=== PATIENT | male | born 1950 | race Caucasian/White ===

== ENCOUNTER 2019-11-30 16:44 | Inpatient (IN) | payer OTHER, SELFPAY ==
[~2019-11-30] VITALS: Ht 167.6 cm; Wt 77.7 kg
[2019-11-30 17:36] LABS: BASOPHIL % 0.1 % (0-2); PLATELET COUNT 199 x10^3mcL (130-400); RED CELL DISTRIBUTION WIDTH 13.7 % (11.5-14.5)
[2019-11-30 17:48] LABS: ALKALINE PHOSPHATASE 97 U/L (46-116); ALT/SGPT 29 U/L (16-63); AST/SGOT 26 U/L (15-37); BILIRUBIN TOTAL 0.41 mg/dL (0.20-1.00); CALCIUM 8.3 mg/dL (8.5-10.1); CARBON DIOXIDE 25.4 mmol/L (21-32); CHLORIDE SERUM 91 mmol/L (98-107); CREATININE SERUM 1.2 mg/dL (0.7-1.3); GFR1 > 60 mL/min; LACTIC DEHYDROGENASE (LDH) 203 U/L (100-190); POTASSIUM SERUM 4.3 mmol/L (3.5-5.1); SODIUM SERUM 127 mmol/L (136-145); TOTAL PROTEIN, SERUM 6.8 g/dL (6.4-8.2)
[2019-11-30 17:51] LABS: ALBUMIN 2.6 g/dL (3.4-5.0)
[2019-11-30 17:52] LABS: GLUCOSE SERUM 460 mg/dL (74-106)
[2019-11-30 18:16] LABS: C REACTIVE PROTEIN 32.7 mg/dL (<=0.9)
[2019-11-30 18:49] LABS: UA SPECIFIC GRAVITY <=1.005 (1.005-1.035); microscopic required? YES; urine erythrocyte TRACE (NEGATIVE)
[2019-11-30 19:48] LABS: CHOLESTEROL/HDL RATIO 3.5; MAGNESIUM 1.9 mg/dL (1.8-2.4); PHOSPHOROUS 2.8 mg/dL (2.5-4.9)
[2019-11-30 19:55] LABS: T3 TOTAL 0.67 ng/mL
[2019-11-30 20:16] LABS: AMPHETAMINE QUAL UR NONE DETECTED (See below)
[2019-11-30 20:17] LABS: FREE T4 1.62 ng/dL (0.76-1.46); FREE THYROXINE INDEX 2.8 ug/dL (1.4-4.5); T4(THYROXINE) 7.4 ug/dL (4.7-13.3)
[2019-11-30] MEDS ORDERED: PROAIR HFA8.5 GM (21:43)
[2019-11-30] MEDS ORDERED: BENZONATATE150 MG (21:44)
[2019-11-30 22:30] VITALS: BP 125/76
[2019-12-01 06:14] VITALS: BP 109/68
[2019-12-01 06:56] LABS: BASOPHIL % 0.1 % (0-2); PLATELET COUNT 213 x10^3mcL (130-400); RED CELL DISTRIBUTION WIDTH 13.7 % (11.5-14.5)
[2019-12-01 07:43] LABS: CALCIUM 8.7 mg/dL (8.5-10.1); CARBON DIOXIDE 25.2 mmol/L (21-32); CHLORIDE SERUM 99 mmol/L (98-107); CREATININE SERUM 0.9 mg/dL (0.7-1.3); GFR1 > 60 mL/min; GLUCOSE SERUM 308 mg/dL (74-106); MAGNESIUM 2.3 mg/dL (1.8-2.4); PHOSPHOROUS 3.7 mg/dL (2.5-4.9); POTASSIUM SERUM 5.2 mmol/L (3.5-5.1); SODIUM SERUM 135 mmol/L (136-145)
[2019-12-01 09:27] VITALS: BP 111/71
[2019-12-01 14:00] VITALS: BP 118/65
[2019-12-01 16:30] VITALS: BP 115/69
[2019-12-01 19:25] VITALS: BP 109/72
[2019-12-02 06:00] VITALS: BP 94/56
[2019-12-02 06:53] LABS: CALCIUM 8.6 mg/dL (8.5-10.1); CARBON DIOXIDE 23.7 mmol/L (21-32); CHLORIDE SERUM 99 mmol/L (98-107); CREATININE SERUM 1.1 mg/dL (0.7-1.3); GFR1 > 60 mL/min; GLUCOSE SERUM 244 mg/dL (74-106); MAGNESIUM 2.1 mg/dL (1.8-2.4); PHOSPHOROUS 2.9 mg/dL (2.5-4.9); POTASSIUM SERUM 3.8 mmol/L (3.5-5.1); SODIUM SERUM 134 mmol/L (136-145)
[2019-12-02 07:07] LABS: PLATELET COUNT 229 x10^3mcL (130-400); RED CELL DISTRIBUTION WIDTH 14.1 % (11.5-14.5)
[2019-12-02 08:09] LABS: BASOPHIL % 0 % (0-2)
[2019-12-02 09:46] VITALS: BP 102/63
[2019-12-02 12:23] VITALS: BP 120/68
[2019-12-02 17:19] VITALS: BP 120/66
[2019-12-02 19:20] VITALS: BP 126/70
[2019-12-02 22:30] VITALS: BP 126/70
[2019-12-03 06:15] VITALS: BP 129/72
[2019-12-03 06:24] LABS: BASOPHIL % 0.1 % (0-2); PLATELET COUNT 238 x10^3mcL (130-400); RED CELL DISTRIBUTION WIDTH 13.8 % (11.5-14.5)
[2019-12-03 06:49] LABS: CALCIUM 8.6 mg/dL (8.5-10.1); CARBON DIOXIDE 27.1 mmol/L (21-32); CHLORIDE SERUM 101 mmol/L (98-107); CREATININE SERUM 1.2 mg/dL (0.7-1.3); GFR1 > 60 mL/min; GLUCOSE SERUM 121 mg/dL (74-106); PHOSPHOROUS 3.8 mg/dL (2.5-4.9); POTASSIUM SERUM 3.9 mmol/L (3.5-5.1); SODIUM SERUM 139 mmol/L (136-145)
[2019-12-03 08:55] VITALS: BP 100/52
[2019-12-03 20:00] VITALS: BP 103/63
[2019-12-03 20:05] VITALS: BP 95/55
[2019-12-03 21:40] VITALS: BP 108/58
[2019-12-04] VITALS (7 sets, daily range): BP systolic 94–123; BP diastolic 47–90
[2019-12-04 05:59] LABS: BASOPHIL % 0.5 % (0-2); PLATELET COUNT 285 x10^3mcL (130-400); RED CELL DISTRIBUTION WIDTH 14.1 % (11.5-14.5)
[2019-12-04 06:21] LABS: CALCIUM 8.8 mg/dL (8.5-10.1); CARBON DIOXIDE 29.4 mmol/L (21-32); CHLORIDE SERUM 102 mmol/L (98-107); GFR1 > 60 mL/min; GLUCOSE SERUM 113 mg/dL (74-106); MAGNESIUM 2.3 mg/dL (1.8-2.4); PHOSPHOROUS 3.5 mg/dL (2.5-4.9); POTASSIUM SERUM 4.5 mmol/L (3.5-5.1); SODIUM SERUM 140 mmol/L (136-145)
[2019-12-05 03:54] VITALS: BP 106/59
[2019-12-05 06:26] LABS: CALCIUM 8.5 mg/dL (8.5-10.1); CARBON DIOXIDE 28.5 mmol/L (21-32); CHLORIDE SERUM 101 mmol/L (98-107); GFR1 > 60 mL/min; GLUCOSE SERUM 286 mg/dL (74-106); MAGNESIUM 2.6 mg/dL (1.8-2.4); PHOSPHOROUS 3.4 mg/dL (2.5-4.9); POTASSIUM SERUM 4.5 mmol/L (3.5-5.1); SODIUM SERUM 136 mmol/L (136-145)
[2019-12-05 06:31] LABS: BASOPHIL % 0.3 % (0-2); PLATELET COUNT 304 x10^3mcL (130-400); RED CELL DISTRIBUTION WIDTH 14.1 % (11.5-14.5)
[2019-12-05 08:15] VITALS: BP 92/48
[2019-12-05 12:00] VITALS: BP 109/66
[2019-12-05 16:00] VITALS: BP 116/59
[2019-12-05 20:00] VITALS: BP 114/60
[2019-12-06] VITALS: BP 96/54
[2019-12-06 04:02] LABS: BASOPHIL % 0.2 % (0-2); PLATELET COUNT 352 x10^3mcL (130-400)
[2019-12-06 04:08] LABS: CALCIUM 8.3 mg/dL (8.5-10.1); CARBON DIOXIDE 32.3 mmol/L (21-32); CHLORIDE SERUM 104 mmol/L (98-107); CREATININE SERUM 1.1 mg/dL (0.7-1.3); GFR1 > 60 mL/min; GLUCOSE SERUM 109 mg/dL (74-106); MAGNESIUM 2.3 mg/dL (1.8-2.4); PHOSPHOROUS 4.2 mg/dL (2.5-4.9); POTASSIUM SERUM 4.7 mmol/L (3.5-5.1); SODIUM SERUM 142 mmol/L (136-145)
[2019-12-06 06:05] VITALS: BP 98/62
[2019-12-06 07:30] VITALS: BP 101/59
[2019-12-06 10:38] LABS: BILIRUBIN DIRECT 0.11 mg/dL (0.0-0.2); BILIRUBIN TOTAL 0.3 mg/dL (0.20-1.00); TOTAL PROTEIN, SERUM 6.4 g/dL (6.4-8.2)
[2019-12-06 10:39] LABS: ALBUMIN 1.9 g/dL (3.4-5.0)
[2019-12-06 12:00] VITALS: BP 110/66
[2019-12-06 16:15] VITALS: BP 120/58
[2019-12-06 20:00] VITALS: BP 98/63
[2019-12-07] VITALS (9 sets, daily range): BP systolic 92–171; BP diastolic 17–90
[2019-12-07 06:02] LABS: PLATELET COUNT 368 x10^3mcL (130-400); RED CELL DISTRIBUTION WIDTH 14.2 % (11.5-14.5)
[2019-12-07 06:03] LABS: BASOPHIL % 0 % (0-2)
[2019-12-07 06:29] LABS: CALCIUM 8.4 mg/dL (8.5-10.1); CARBON DIOXIDE 30.8 mmol/L (21-32); CHLORIDE SERUM 104 mmol/L (98-107); GFR1 > 60 mL/min; MAGNESIUM 2.4 mg/dL (1.8-2.4); PHOSPHOROUS 2.9 mg/dL (2.5-4.9); POTASSIUM SERUM 3.9 mmol/L (3.5-5.1); SODIUM SERUM 142 mmol/L (136-145)
[2019-12-07 06:40] LABS: GLUCOSE SERUM 55 mg/dL (74-106)
[2019-12-07 07:22] LABS: ERYTHROCYTE SED RATE 84 mm/hr (0-20)
[2019-12-07 08:11] LABS: C REACTIVE PROTEIN 35.1 mg/dL (<=0.9)
[2019-12-08] VITALS (16 sets, daily range): BP systolic 81–118; BP diastolic 54–65
[2019-12-08 05:54] LABS: PLATELET COUNT 345 x10^3mcL (130-400); RED CELL DISTRIBUTION WIDTH 13.1 % (11.5-14.5)
[2019-12-08 05:55] LABS: BASOPHIL % 2.7 % (0-2)
[2019-12-08 06:16] LABS: ALKALINE PHOSPHATASE 136 U/L (46-116); ALT/SGPT 78 U/L (16-63); AST/SGOT 80 U/L (15-37); BILIRUBIN DIRECT 0.16 mg/dL (0.0-0.2); BILIRUBIN TOTAL 0.46 mg/dL (0.20-1.00); CALCIUM 7.6 mg/dL (8.5-10.1); CARBON DIOXIDE 29.6 mmol/L (21-32); CHLORIDE SERUM 107 mmol/L (98-107); GFR1 > 60 mL/min; GLUCOSE SERUM 306 mg/dL (74-106); MAGNESIUM 2.8 mg/dL (1.8-2.4); POTASSIUM SERUM 4.7 mmol/L (3.5-5.1); SODIUM SERUM 140 mmol/L (136-145)
[2019-12-08 06:19] LABS: ALBUMIN 1.5 g/dL (3.4-5.0); TOTAL PROTEIN, SERUM 5.9 g/dL (6.4-8.2)
[2019-12-08 06:32] LABS: C REACTIVE PROTEIN 39.7 mg/dL (<=0.9)
[2019-12-08 06:39] LABS: ERYTHROCYTE SED RATE 90 mm/hr (0-20)
[2019-12-09] VITALS (14 sets, daily range): BP systolic 101–114; BP diastolic 65–72
[2019-12-09 06:21] LABS: PLATELET COUNT 399 x10^3mcL (130-400)
[2019-12-09 06:41] LABS: BASOPHIL % 0 % (0-2); RED CELL DISTRIBUTION WIDTH 14.8 % (11.5-14.5)
[2019-12-09 07:27] LABS: BILIRUBIN DIRECT 0.15 mg/dL (0.0-0.2); BILIRUBIN TOTAL 0.3 mg/dL (0.20-1.00)
[2019-12-09 07:31] LABS: ALBUMIN 1.6 g/dL (3.4-5.0); TOTAL PROTEIN, SERUM 5.9 g/dL (6.4-8.2)
[2019-12-09 07:42] LABS: ALKALINE PHOSPHATASE 121 U/L (46-116); ALT/SGPT 61 U/L (16-63); AST/SGOT 40 U/L (15-37); BILIRUBIN TOTAL 0.3 mg/dL (0.20-1.00); CALCIUM 7.6 mg/dL (8.5-10.1); CARBON DIOXIDE 23.9 mmol/L (21-32); CHLORIDE SERUM 105 mmol/L (98-107); CREATININE SERUM 0.9 mg/dL (0.7-1.3); GFR1 > 60 mL/min; GLUCOSE SERUM 219 mg/dL (74-106); POTASSIUM SERUM 4.7 mmol/L (3.5-5.1); SODIUM SERUM 139 mmol/L (136-145)
[2019-12-09 07:45] LABS: ALBUMIN 1.5 g/dL (3.4-5.0); TOTAL PROTEIN, SERUM 5.9 g/dL (6.4-8.2)
[2019-12-09 09:01] LABS: C REACTIVE PROTEIN 26.4 mg/dL (<=0.9)
[2019-12-10] VITALS (15 sets, daily range): BP systolic 96–127; BP diastolic 62–662
[2019-12-10 06:08] LABS: BASOPHIL % 1.4 % (0-2); PLATELET COUNT 309 x10^3mcL (130-400); RED CELL DISTRIBUTION WIDTH 14.6 % (11.5-14.5)
[2019-12-10 06:24] LABS: BILIRUBIN DIRECT 0.17 mg/dL (0.0-0.2); BILIRUBIN TOTAL 0.36 mg/dL (0.20-1.00)
[2019-12-10 06:35] LABS: CALCIUM 7.8 mg/dL (8.5-10.1); CARBON DIOXIDE 26.8 mmol/L (21-32); CHLORIDE SERUM 109 mmol/L (98-107); CREATININE SERUM 0.9 mg/dL (0.7-1.3); GFR1 > 60 mL/min; GLUCOSE SERUM 249 mg/dL (74-106); MAGNESIUM 2.9 mg/dL (1.8-2.4); PHOSPHOROUS 3.3 mg/dL (2.5-4.9); POTASSIUM SERUM 4.9 mmol/L (3.5-5.1); SODIUM SERUM 142 mmol/L (136-145)
[2019-12-10 06:36] LABS: ALBUMIN 1.6 g/dL (3.4-5.0); TOTAL PROTEIN, SERUM 5.7 g/dL (6.4-8.2)
[2019-12-11] VITALS (14 sets, daily range): BP systolic 89–122; BP diastolic 51–74
[2019-12-11 05:13] LABS: BASOPHIL % 0 % (0-2); PLATELET COUNT 300 x10^3mcL (130-400); RED CELL DISTRIBUTION WIDTH 14.4 % (11.5-14.5)
[2019-12-11 05:24] LABS: CALCIUM 7.9 mg/dL (8.5-10.1); CARBON DIOXIDE 30.8 mmol/L (21-32); CHLORIDE SERUM 110 mmol/L (98-107); GFR1 > 60 mL/min; GLUCOSE SERUM 133 mg/dL (74-106); MAGNESIUM 2.6 mg/dL (1.8-2.4); PHOSPHOROUS 3.2 mg/dL (2.5-4.9); POTASSIUM SERUM 4.3 mmol/L (3.5-5.1); SODIUM SERUM 146 mmol/L (136-145)
[2019-12-11 05:43] LABS: BILIRUBIN DIRECT 0.1 mg/dL (0.0-0.2); BILIRUBIN TOTAL 0.3 mg/dL (0.20-1.00)
[2019-12-11 05:45] LABS: ALBUMIN 1.6 g/dL (3.4-5.0); TOTAL PROTEIN, SERUM 5.6 g/dL (6.4-8.2)
[2019-12-12] VITALS (19 sets, daily range): BP systolic 83–106; BP diastolic 56–69
[2019-12-12 02:58] LABS: BASOPHIL % 0.3 % (0-2); PLATELET COUNT 276 x10^3mcL (130-400)
[2019-12-12 03:13] LABS: ALKALINE PHOSPHATASE 117 U/L (46-116); ALT/SGPT 37 U/L (16-63); AST/SGOT 43 U/L (15-37); BILIRUBIN DIRECT 0.16 mg/dL (0.0-0.2); BILIRUBIN TOTAL 0.43 mg/dL (0.20-1.00); CALCIUM 8.1 mg/dL (8.5-10.1); CARBON DIOXIDE 30.7 mmol/L (21-32); CHLORIDE SERUM 112 mmol/L (98-107); CREATININE SERUM 0.9 mg/dL (0.7-1.3); GFR1 > 60 mL/min; GLUCOSE SERUM 100 mg/dL (74-106); MAGNESIUM 2.5 mg/dL (1.8-2.4); PHOSPHOROUS 4.2 mg/dL (2.5-4.9); SODIUM SERUM 147 mmol/L (136-145)
[2019-12-12 04:00] LABS: ALBUMIN 1.7 g/dL (3.4-5.0); TOTAL PROTEIN, SERUM 5.8 g/dL (6.4-8.2)
[2019-12-13] VITALS (15 sets, daily range): BP systolic 84–121; BP diastolic 54–80
[2019-12-13 05:57] LABS: PLATELET COUNT 221 x10^3mcL (130-400)
[2019-12-13 06:03] LABS: ALKALINE PHOSPHATASE 92 U/L (46-116); ALT/SGPT 35 U/L (16-63); AST/SGOT 31 U/L (15-37); BILIRUBIN DIRECT 0.15 mg/dL (0.0-0.2); BILIRUBIN TOTAL 0.3 mg/dL (0.20-1.00); CALCIUM 7.9 mg/dL (8.5-10.1); CARBON DIOXIDE 28.4 mmol/L (21-32); CHLORIDE SERUM 108 mmol/L (98-107); CREATININE SERUM 0.9 mg/dL (0.7-1.3); GFR1 > 60 mL/min; GLUCOSE SERUM 257 mg/dL (74-106); MAGNESIUM 2.6 mg/dL (1.8-2.4); PHOSPHOROUS 3.7 mg/dL (2.5-4.9); POTASSIUM SERUM 4.4 mmol/L (3.5-5.1); SODIUM SERUM 145 mmol/L (136-145)
[2019-12-13 06:05] LABS: ALBUMIN 1.4 g/dL (3.4-5.0); TOTAL PROTEIN, SERUM 5.1 g/dL (6.4-8.2)
[2019-12-13 06:06] LABS: BASOPHIL % 0 % (0-2); RED CELL DISTRIBUTION WIDTH 14.6 % (11.5-14.5)
[2019-12-14] VITALS (18 sets, daily range): BP systolic 101–133; BP diastolic 55–754
[2019-12-14 06:01] LABS: BASOPHIL % 1.3 % (0-2); PLATELET COUNT 225 x10^3mcL (130-400)
[2019-12-14 06:07] LABS: RED CELL DISTRIBUTION WIDTH 14.8 % (11.5-14.5)
[2019-12-14 06:25] LABS: ALKALINE PHOSPHATASE 101 U/L (46-116); ALT/SGPT 32 U/L (16-63); AST/SGOT 31 U/L (15-37); BILIRUBIN DIRECT 0.13 mg/dL (0.0-0.2); BILIRUBIN TOTAL 0.44 mg/dL (0.20-1.00); CALCIUM 8.2 mg/dL (8.5-10.1); CARBON DIOXIDE 33.4 mmol/L (21-32); CHLORIDE SERUM 109 mmol/L (98-107); CREATININE SERUM 0.9 mg/dL (0.7-1.3); GFR1 > 60 mL/min; GLUCOSE SERUM 177 mg/dL (74-106); MAGNESIUM 2.7 mg/dL (1.8-2.4); PHOSPHOROUS 4.2 mg/dL (2.5-4.9); POTASSIUM SERUM 5.2 mmol/L (3.5-5.1); SODIUM SERUM 144 mmol/L (136-145)
[2019-12-14 06:36] LABS: ALBUMIN 1.6 g/dL (3.4-5.0); TOTAL PROTEIN, SERUM 5.4 g/dL (6.4-8.2)
[2019-12-14 12:38] LABS: CHLORIDE SERUM 109 mmol/L (98-107); CREATININE SERUM 0.8 mg/dL (0.7-1.3); GFR1 > 60 mL/min; GLUCOSE SERUM 172 mg/dL (74-106); POTASSIUM SERUM 4.8 mmol/L (3.5-5.1); SODIUM SERUM 144 mmol/L (136-145)
[2019-12-15] VITALS (15 sets, daily range): BP systolic 107–140; BP diastolic 60–80
[2019-12-15 05:55] LABS: PLATELET COUNT 186 x10^3mcL (130-400); RED CELL DISTRIBUTION WIDTH 13.8 % (11.5-14.5)
[2019-12-15 05:56] LABS: BASOPHIL % 2.1 % (0-2)
[2019-12-15 06:19] LABS: ALKALINE PHOSPHATASE 101 U/L (46-116); ALT/SGPT 36 U/L (16-63); AST/SGOT 35 U/L (15-37); BILIRUBIN DIRECT 0.22 mg/dL (0.0-0.2); BILIRUBIN TOTAL 0.52 mg/dL (0.20-1.00); CALCIUM 7.9 mg/dL (8.5-10.1); CARBON DIOXIDE 33.8 mmol/L (21-32); CHLORIDE SERUM 109 mmol/L (98-107); GFR1 > 60 mL/min; GLUCOSE SERUM 192 mg/dL (74-106); MAGNESIUM 2.5 mg/dL (1.8-2.4); PHOSPHOROUS 4.2 mg/dL (2.5-4.9); POTASSIUM SERUM 4.6 mmol/L (3.5-5.1); SODIUM SERUM 145 mmol/L (136-145)
[2019-12-15 06:23] LABS: ALBUMIN 1.7 g/dL (3.4-5.0); TOTAL PROTEIN, SERUM 5.3 g/dL (6.4-8.2)
[2019-12-16] VITALS (16 sets, daily range): BP systolic 92–152; BP diastolic 54–95
[2019-12-16 05:56] LABS: BASOPHIL % 0 % (0-2); PLATELET COUNT 162 x10^3mcL (130-400); RED CELL DISTRIBUTION WIDTH 14.8 % (11.5-14.5)
[2019-12-16 06:15] LABS: CALCIUM 6.8 mg/dL (8.5-10.1); CARBON DIOXIDE 29.5 mmol/L (21-32); CHLORIDE SERUM 113 mmol/L (98-107); CREATININE SERUM 0.7 mg/dL (0.7-1.3); GFR1 > 60 mL/min; GLUCOSE SERUM 162 mg/dL (74-106); MAGNESIUM 2.1 mg/dL (1.8-2.4); PHOSPHOROUS 3.3 mg/dL (2.5-4.9); POTASSIUM SERUM 4.1 mmol/L (3.5-5.1); SODIUM SERUM 146 mmol/L (136-145)
[2019-12-17] VITALS (16 sets, daily range): BP systolic 100–146; BP diastolic 63–767
[2019-12-17 05:41] LABS: PLATELET COUNT 135 x10^3mcL (130-400); RED CELL DISTRIBUTION WIDTH 14.5 % (11.5-14.5)
[2019-12-17 05:42] LABS: BASOPHIL % 0 % (0-2)
[2019-12-17 06:08] LABS: CALCIUM 7.7 mg/dL (8.5-10.1); CARBON DIOXIDE 36.5 mmol/L (21-32); CHLORIDE SERUM 108 mmol/L (98-107); CREATININE SERUM 0.8 mg/dL (0.7-1.3); GFR1 > 60 mL/min; GLUCOSE SERUM 150 mg/dL (74-106); MAGNESIUM 2.6 mg/dL (1.8-2.4); PHOSPHOROUS 4.4 mg/dL (2.5-4.9); POTASSIUM SERUM 5.1 mmol/L (3.5-5.1); SODIUM SERUM 141 mmol/L (136-145)
[2019-12-17 06:10] LABS: ALBUMIN 1.6 g/dL (3.4-5.0)
[2019-12-18] VITALS (16 sets, daily range): BP systolic 101–139; BP diastolic 44–82
[2019-12-18 02:54] LABS: BASOPHIL % 0 % (0-2); PLATELET COUNT 131 x10^3mcL (130-400); RED CELL DISTRIBUTION WIDTH 14.5 % (11.5-14.5)
[2019-12-18 03:28] LABS: CALCIUM 7.4 mg/dL (8.5-10.1); CARBON DIOXIDE 35.1 mmol/L (21-32); CHLORIDE SERUM 107 mmol/L (98-107); CREATININE SERUM 0.9 mg/dL (0.7-1.3); GFR1 > 60 mL/min; GLUCOSE SERUM 246 mg/dL (74-106); MAGNESIUM 2.4 mg/dL (1.8-2.4); PHOSPHOROUS 4.1 mg/dL (2.5-4.9); POTASSIUM SERUM 5.2 mmol/L (3.5-5.1); SODIUM SERUM 139 mmol/L (136-145)
[2019-12-19] VITALS (19 sets, daily range): BP systolic 79–174; BP diastolic 44–88
[2019-12-19 05:38] LABS: BASOPHIL % 0 % (0-2); PLATELET COUNT 127 x10^3mcL (130-400); RED CELL DISTRIBUTION WIDTH 14.7 % (11.5-14.5)
[2019-12-19 05:47] LABS: CALCIUM 7.7 mg/dL (8.5-10.1); CARBON DIOXIDE 30.5 mmol/L (21-32); CHLORIDE SERUM 105 mmol/L (98-107); GFR1 > 60 mL/min; GLUCOSE SERUM 127 mg/dL (74-106); MAGNESIUM 2.6 mg/dL (1.8-2.4); PHOSPHOROUS 3.9 mg/dL (2.5-4.9); POTASSIUM SERUM 4.6 mmol/L (3.5-5.1); SODIUM SERUM 141 mmol/L (136-145)
[2019-12-19 13:32] LABS: RED CELL DISTRIBUTION WIDTH 14.3 % (11.5-14.5)
[2019-12-19 14:10] LABS: MONOCYTE 3 % (0-7); SEGMENTED NEUTROPHILS 93 % (37-75); rbc morphology (normal/abnorm) NORMAL (NORMAL)
[2019-12-19 14:11] LABS: PLATELET COUNT 108 x10^3mcL (130-400)
[2019-12-20] VITALS (15 sets, daily range): BP systolic 104–135; BP diastolic 59–70
[2019-12-20 06:43] LABS: ALBUMIN 1.5 g/dL (3.4-5.0); BASOPHIL % 0 % (0-2); CARBON DIOXIDE 30.6 mmol/L (21-32); CHLORIDE SERUM 104 mmol/L (98-107); CREATININE SERUM 0.8 mg/dL (0.7-1.3); GFR1 > 60 mL/min; GLUCOSE SERUM 217 mg/dL (74-106); MAGNESIUM 2.1 mg/dL (1.8-2.4); PHOSPHOROUS 3.1 mg/dL (2.5-4.9); PLATELET COUNT 86 x10^3mcL (130-400); POTASSIUM SERUM 4.6 mmol/L (3.5-5.1); RED CELL DISTRIBUTION WIDTH 14.3 % (11.5-14.5); SODIUM SERUM 137 mmol/L (136-145)
[2019-12-21] VITALS (15 sets, daily range): BP systolic 107–135; BP diastolic 50–66
[2019-12-21 05:36] LABS: BASOPHIL % 0 % (0-2); PLATELET COUNT 71 x10^3mcL (130-400); RED CELL DISTRIBUTION WIDTH 14.6 % (11.5-14.5)
[2019-12-21 05:37] LABS: CALCIUM 7.5 mg/dL (8.5-10.1); CARBON DIOXIDE 36.1 mmol/L (21-32); CHLORIDE SERUM 98 mmol/L (98-107); CREATININE SERUM 0.7 mg/dL (0.7-1.3); GFR1 > 60 mL/min; GLUCOSE SERUM 217 mg/dL (74-106); MAGNESIUM 2.1 mg/dL (1.8-2.4); PHOSPHOROUS 4.1 mg/dL (2.5-4.9); POTASSIUM SERUM 4.7 mmol/L (3.5-5.1); SODIUM SERUM 134 mmol/L (136-145)
[2019-12-22] VITALS (14 sets, daily range): BP systolic 107–132; BP diastolic 60–75
[2019-12-22 07:06] LABS: BASOPHIL % 0 % (0-2); PLATELET COUNT 65 x10^3mcL (130-400); RED CELL DISTRIBUTION WIDTH 14.7 % (11.5-14.5)
[2019-12-22 07:07] LABS: CALCIUM 7.8 mg/dL (8.5-10.1); CARBON DIOXIDE 34.8 mmol/L (21-32); CHLORIDE SERUM 100 mmol/L (98-107); CREATININE SERUM 0.7 mg/dL (0.7-1.3); GFR1 > 60 mL/min; GLUCOSE SERUM 160 mg/dL (74-106); MAGNESIUM 2.1 mg/dL (1.8-2.4); PHOSPHOROUS 3.1 mg/dL (2.5-4.9); POTASSIUM SERUM 4.4 mmol/L (3.5-5.1); SODIUM SERUM 136 mmol/L (136-145)
[2019-12-23] VITALS (15 sets, daily range): BP systolic 107–133; BP diastolic 57–78
[2019-12-23 05:12] LABS: BASOPHIL % 0.3 % (0-2); RED CELL DISTRIBUTION WIDTH 14.5 % (11.5-14.5)
[2019-12-23 05:13] LABS: PLATELET COUNT 60 x10^3mcL (130-400)
[2019-12-23 05:51] LABS: CALCIUM 7.8 mg/dL (8.5-10.1); CARBON DIOXIDE 37.7 mmol/L (21-32); CHLORIDE SERUM 102 mmol/L (98-107); CREATININE SERUM 0.7 mg/dL (0.7-1.3); GFR1 > 60 mL/min; GLUCOSE SERUM 135 mg/dL (74-106); MAGNESIUM 2.3 mg/dL (1.8-2.4); PHOSPHOROUS 4.1 mg/dL (2.5-4.9); POTASSIUM SERUM 4.7 mmol/L (3.5-5.1); SODIUM SERUM 137 mmol/L (136-145)
[2019-12-23 05:53] LABS: C REACTIVE PROTEIN 11.2 mg/dL (<=0.9)
[2019-12-23 05:56] LABS: ALBUMIN 1.5 g/dL (3.4-5.0)
[2019-12-24] VITALS (16 sets, daily range): BP systolic 104–145; BP diastolic 53–65
[2019-12-24 05:36] LABS: BASOPHIL % 0.9 % (0-2)
[2019-12-24 05:37] LABS: PLATELET COUNT 67 x10^3mcL (130-400); RED CELL DISTRIBUTION WIDTH 14.9 % (11.5-14.5)
[2019-12-24 05:57] LABS: PHOSPHOROUS 4.3 mg/dL (2.5-4.9)
[2019-12-24 05:58] LABS: MAGNESIUM 2.2 mg/dL (1.8-2.4)
[2019-12-24 06:07] LABS: ALBUMIN 1.5 g/dL (3.4-5.0); ALKALINE PHOSPHATASE 116 U/L (46-116); ALT/SGPT 54 U/L (16-63); AST/SGOT 34 U/L (15-37); BILIRUBIN TOTAL 0.59 mg/dL (0.20-1.00); CALCIUM 7.1 mg/dL (8.5-10.1); CARBON DIOXIDE 35.7 mmol/L (21-32); CHLORIDE SERUM 98 mmol/L (98-107); CREATININE SERUM 0.8 mg/dL (0.7-1.3); GFR1 > 60 mL/min; GLUCOSE SERUM 254 mg/dL (74-106); SODIUM SERUM 133 mmol/L (136-145); TOTAL PROTEIN, SERUM 4.4 g/dL (6.4-8.2)
[2019-12-25] VITALS (15 sets, daily range): BP systolic 102–144; BP diastolic 57–70
[2019-12-25 05:35] LABS: BASOPHIL % 0.2 % (0-2); PLATELET COUNT 73 x10^3mcL (130-400); RED CELL DISTRIBUTION WIDTH 14.8 % (11.5-14.5)
[2019-12-25 05:50] LABS: CALCIUM 7.4 mg/dL (8.5-10.1); CHLORIDE SERUM 98 mmol/L (98-107); CREATININE SERUM 0.7 mg/dL (0.7-1.3); GFR1 > 60 mL/min; GLUCOSE SERUM 188 mg/dL (74-106); MAGNESIUM 2.3 mg/dL (1.8-2.4); PHOSPHOROUS 2.9 mg/dL (2.5-4.9); POTASSIUM SERUM 4.6 mmol/L (3.5-5.1); SODIUM SERUM 135 mmol/L (136-145)
[2019-12-25 06:00] LABS: CARBON DIOXIDE 42.8 mmol/L (21-32)
[2019-12-26] VITALS (15 sets, daily range): BP systolic 127–144; BP diastolic 65–73
[2019-12-26 06:28] LABS: BASOPHIL % 0 % (0-2); PLATELET COUNT 92 x10^3mcL (130-400); RED CELL DISTRIBUTION WIDTH 15.9 % (11.5-14.5)
[2019-12-26 06:42] LABS: CALCIUM 7.7 mg/dL (8.5-10.1); CHLORIDE SERUM 97 mmol/L (98-107); CREATININE SERUM 0.7 mg/dL (0.7-1.3); GFR1 > 60 mL/min; GLUCOSE SERUM 199 mg/dL (74-106); MAGNESIUM 2.2 mg/dL (1.8-2.4); PHOSPHOROUS 6.1 mg/dL (2.5-4.9); POTASSIUM SERUM 5.3 mmol/L (3.5-5.1); SODIUM SERUM 134 mmol/L (136-145)
[2019-12-26 07:41] LABS: CARBON DIOXIDE 40.7 mmol/L (21-32)
[2019-12-27] VITALS (16 sets, daily range): BP systolic 115–159; BP diastolic 56–72
[2019-12-27 05:59] LABS: BASOPHIL % 0 % (0-2); PLATELET COUNT 98 x10^3mcL (130-400); RED CELL DISTRIBUTION WIDTH 14.6 % (11.5-14.5)
[2019-12-27 06:04] LABS: CALCIUM 7.6 mg/dL (8.5-10.1); CARBON DIOXIDE 39.4 mmol/L (21-32); CHLORIDE SERUM 96 mmol/L (98-107); CREATININE SERUM 0.6 mg/dL (0.7-1.3); GFR1 > 60 mL/min; GLUCOSE SERUM 167 mg/dL (74-106); MAGNESIUM 2.1 mg/dL (1.8-2.4); POTASSIUM SERUM 4.7 mmol/L (3.5-5.1); SODIUM SERUM 136 mmol/L (136-145); TRIGLYCERIDES 158 mg/dL (<150)
[2019-12-27 06:08] LABS: C REACTIVE PROTEIN 15.5 mg/dL (<=0.9)
[2019-12-28] VITALS (17 sets, daily range): BP systolic 118–160; BP diastolic 55–76
[2019-12-28 06:16] LABS: BASOPHIL % 0.1 % (0-2)
[2019-12-28 06:17] LABS: PLATELET COUNT 80 x10^3mcL (130-400); RED CELL DISTRIBUTION WIDTH 15.1 % (11.5-14.5)
[2019-12-28 06:30] LABS: ALKALINE PHOSPHATASE 90 U/L (46-116); ALT/SGPT 46 U/L (16-63); AST/SGOT 39 U/L (15-37); BILIRUBIN TOTAL 0.3 mg/dL (0.20-1.00); CALCIUM 7.1 mg/dL (8.5-10.1); CHLORIDE SERUM 97 mmol/L (98-107); CREATININE SERUM 0.5 mg/dL (0.7-1.3); GFR1 > 60 mL/min; GLUCOSE SERUM 202 mg/dL (74-106); SODIUM SERUM 135 mmol/L (136-145)
[2019-12-28 06:43] LABS: ALBUMIN 1.2 g/dL (3.4-5.0); TOTAL PROTEIN, SERUM 4.2 g/dL (6.4-8.2)
[2019-12-28 06:44] LABS: CARBON DIOXIDE 40.4 mmol/L (21-32)
[2019-12-28 13:07] LABS: BASOPHIL % 0.1 % (0-2)
[2019-12-28 13:12] LABS: PLATELET COUNT 95 x10^3mcL (130-400)
[2019-12-28 13:38] LABS: CHOLESTEROL/HDL RATIO 4.3
[2019-12-28 14:12] LABS: CALCIUM 7.5 mg/dL (8.5-10.1); CHLORIDE SERUM 99 mmol/L (98-107); CREATININE SERUM 0.5 mg/dL (0.7-1.3); GFR1 > 60 mL/min; GLUCOSE SERUM 204 mg/dL (74-106); POTASSIUM SERUM 4.1 mmol/L (3.5-5.1); SODIUM SERUM 137 mmol/L (136-145)
[2019-12-28 14:21] LABS: CARBON DIOXIDE 41.1 mmol/L (21-32)
[2019-12-29] VITALS (14 sets, daily range): BP systolic 109–153; BP diastolic 63–81
[2019-12-29 05:44] LABS: BASOPHIL % 0.1 % (0-2)
[2019-12-29 05:45] LABS: PLATELET COUNT 64 x10^3mcL (130-400); RED CELL DISTRIBUTION WIDTH 14.9 % (11.5-14.5)
[2019-12-29 06:01] LABS: CALCIUM 7.2 mg/dL (8.5-10.1); CARBON DIOXIDE 36.3 mmol/L (21-32); CHLORIDE SERUM 99 mmol/L (98-107); CREATININE SERUM 0.5 mg/dL (0.7-1.3); GFR1 > 60 mL/min; GLUCOSE SERUM 218 mg/dL (74-106); MAGNESIUM 1.9 mg/dL (1.8-2.4); PHOSPHOROUS 2.9 mg/dL (2.5-4.9); POTASSIUM SERUM 3.8 mmol/L (3.5-5.1); SODIUM SERUM 136 mmol/L (136-145)
[2019-12-30] VITALS (14 sets, daily range): BP systolic 112–155; BP diastolic 56–83
[2019-12-30 05:21] LABS: BASOPHIL % 0.1 % (0-2)
[2019-12-30 05:23] LABS: PLATELET COUNT 124 x10^3mcL (130-400); RED CELL DISTRIBUTION WIDTH 15.1 % (11.5-14.5)
[2019-12-30 05:53] LABS: CALCIUM 7.4 mg/dL (8.5-10.1); CHLORIDE SERUM 96 mmol/L (98-107); CREATININE SERUM 0.5 mg/dL (0.7-1.3); GFR1 > 60 mL/min; GLUCOSE SERUM 142 mg/dL (74-106); MAGNESIUM 2.2 mg/dL (1.8-2.4); PHOSPHOROUS 3.1 mg/dL (2.5-4.9); POTASSIUM SERUM 4.2 mmol/L (3.5-5.1); SODIUM SERUM 135 mmol/L (136-145)
[2019-12-30 05:56] LABS: CARBON DIOXIDE 40.5 mmol/L (21-32)
[2019-12-31] VITALS (16 sets, daily range): BP systolic 105–151; BP diastolic 61–80
[2019-12-31 05:45] LABS: PLATELET COUNT 139 x10^3mcL (130-400)
[2019-12-31 05:46] LABS: BASOPHIL % 0 % (0-2); RED CELL DISTRIBUTION WIDTH 15.2 % (11.5-14.5)
[2019-12-31 06:22] LABS: CALCIUM 7.2 mg/dL (8.5-10.1); CARBON DIOXIDE 38.1 mmol/L (21-32); CHLORIDE SERUM 100 mmol/L (98-107); CREATININE SERUM 0.4 mg/dL (0.7-1.3); GFR1 > 60 mL/min; GLUCOSE SERUM 102 mg/dL (74-106); MAGNESIUM 2.2 mg/dL (1.8-2.4); PHOSPHOROUS 3.3 mg/dL (2.5-4.9); POTASSIUM SERUM 4.1 mmol/L (3.5-5.1); SODIUM SERUM 138 mmol/L (136-145)
[2020-01-01] VITALS (17 sets, daily range): BP systolic 98–164; BP diastolic 54–97
[2020-01-01 04:06] LABS: ANTITHROMBIN ACTIVITY 116 % (75-135)
[2020-01-01 05:07] LABS: BASOPHIL % 0.1 % (0-2); PLATELET COUNT 149 x10^3mcL (130-400)
[2020-01-01 05:12] LABS: RED CELL DISTRIBUTION WIDTH 15.8 % (11.5-14.5)
[2020-01-01 05:24] LABS: CALCIUM 7.4 mg/dL (8.5-10.1); CARBON DIOXIDE 36.3 mmol/L (21-32); CHLORIDE SERUM 100 mmol/L (98-107); CREATININE SERUM 0.6 mg/dL (0.7-1.3); GFR1 > 60 mL/min; GLUCOSE SERUM 204 mg/dL (74-106); MAGNESIUM 2.1 mg/dL (1.8-2.4); PHOSPHOROUS 3.9 mg/dL (2.5-4.9); POTASSIUM SERUM 4.5 mmol/L (3.5-5.1); SODIUM SERUM 136 mmol/L (136-145)
[2020-01-02] VITALS (25 sets, daily range): BP systolic 96–134; BP diastolic 47–78
[2020-01-02 05:03] LABS: PLATELET COUNT 180 x10^3mcL (130-400)
[2020-01-02 05:14] LABS: CALCIUM 7.9 mg/dL (8.5-10.1); CARBON DIOXIDE 35.4 mmol/L (21-32); CHLORIDE SERUM 99 mmol/L (98-107); CREATININE SERUM 0.6 mg/dL (0.7-1.3); GFR1 > 60 mL/min; GLUCOSE SERUM 271 mg/dL (74-106); MAGNESIUM 2.3 mg/dL (1.8-2.4); PHOSPHOROUS 2.8 mg/dL (2.5-4.9); POTASSIUM SERUM 4.9 mmol/L (3.5-5.1); SODIUM SERUM 134 mmol/L (136-145)
[2020-01-02 05:18] LABS: ALBUMIN 1.3 g/dL (3.4-5.0)
[2020-01-02 05:21] LABS: BASOPHIL % 0 % (0-2); RED CELL DISTRIBUTION WIDTH 16.1 % (11.5-14.5)
[2020-01-03] VITALS (17 sets, daily range): BP systolic 110–159; BP diastolic 63–77
[2020-01-03 05:43] LABS: PLATELET COUNT 209 x10^3mcL (130-400)
[2020-01-03 05:52] LABS: BASOPHIL % 0 % (0-2); RED CELL DISTRIBUTION WIDTH 16.1 % (11.5-14.5)
[2020-01-03 05:56] LABS: CALCIUM 7.9 mg/dL (8.5-10.1); CARBON DIOXIDE 30.9 mmol/L (21-32); CHLORIDE SERUM 99 mmol/L (98-107); CREATININE SERUM 0.5 mg/dL (0.7-1.3); GFR1 > 60 mL/min; GLUCOSE SERUM 226 mg/dL (74-106); MAGNESIUM 2.1 mg/dL (1.8-2.4); PHOSPHOROUS 1.1 mg/dL (2.5-4.9); POTASSIUM SERUM 4.4 mmol/L (3.5-5.1); SODIUM SERUM 136 mmol/L (136-145)
[2020-01-04] VITALS (18 sets, daily range): BP systolic 97–156; BP diastolic 57–82
[2020-01-04 05:18] LABS: PLATELET COUNT 239 x10^3mcL (130-400)
[2020-01-04 05:19] LABS: BASOPHIL % 0 % (0-2); RED CELL DISTRIBUTION WIDTH 16.8 % (11.5-14.5)
[2020-01-04 05:24] LABS: CALCIUM 7.9 mg/dL (8.5-10.1); CHLORIDE SERUM 98 mmol/L (98-107); CREATININE SERUM 0.4 mg/dL (0.7-1.3); GFR1 > 60 mL/min; GLUCOSE SERUM 205 mg/dL (74-106); MAGNESIUM 1.9 mg/dL (1.8-2.4); PHOSPHOROUS 3.2 mg/dL (2.5-4.9); POTASSIUM SERUM 4.1 mmol/L (3.5-5.1); SODIUM SERUM 138 mmol/L (136-145)
[2020-01-04 05:36] LABS: CARBON DIOXIDE 42.4 mmol/L (21-32)
[2020-01-05] VITALS (14 sets, daily range): BP systolic 90–137; BP diastolic 53–72
[2020-01-05 05:28] LABS: BASOPHIL % 0.3 % (0-2); PLATELET COUNT 334 x10^3mcL (130-400)
[2020-01-05 05:39] LABS: CALCIUM 7.9 mg/dL (8.5-10.1); CHLORIDE SERUM 98 mmol/L (98-107); CREATININE SERUM 0.3 mg/dL (0.7-1.3); GFR1 > 60 mL/min; GLUCOSE SERUM 124 mg/dL (74-106); MAGNESIUM 1.9 mg/dL (1.8-2.4); PHOSPHOROUS 2.8 mg/dL (2.5-4.9); POTASSIUM SERUM 3.7 mmol/L (3.5-5.1); SODIUM SERUM 137 mmol/L (136-145)
[2020-01-05 05:43] LABS: CARBON DIOXIDE 44.9 mmol/L (21-32)
[2020-01-05 06:04] LABS: RED CELL DISTRIBUTION WIDTH 16.2 % (11.5-14.5)
[2020-01-05 06:15] LABS: rbc morphology (normal/abnorm) ABNORMAL (NORMAL)
[2020-01-06] VITALS (19 sets, daily range): BP systolic 96–121; BP diastolic 58–70
[2020-01-06 05:37] LABS: CHLORIDE SERUM 98 mmol/L (98-107); CREATININE SERUM 0.4 mg/dL (0.7-1.3); GFR1 > 60 mL/min; GLUCOSE SERUM 131 mg/dL (74-106); PHOSPHOROUS 2.5 mg/dL (2.5-4.9); POTASSIUM SERUM 3.6 mmol/L (3.5-5.1); SODIUM SERUM 139 mmol/L (136-145)
[2020-01-06 05:38] LABS: ALBUMIN 1.4 g/dL (3.4-5.0)
[2020-01-06 05:39] LABS: CARBON DIOXIDE > 45.0 mmol/L (21-32)
[2020-01-06 06:59] LABS: BASOPHIL % 0.3 % (0-2); PLATELET COUNT 242 x10^3mcL (130-400)
[2020-01-06 07:19] LABS: RED CELL DISTRIBUTION WIDTH 16.1 % (11.5-14.5)
[2020-01-07] VITALS (16 sets, daily range): BP systolic 95–131; BP diastolic 54–72
[2020-01-07 08:20] LABS: BASOPHIL % 0.4 % (0-2); PLATELET COUNT 300 x10^3mcL (130-400)
[2020-01-07 08:24] LABS: CALCIUM 7.9 mg/dL (8.5-10.1); CHLORIDE SERUM 100 mmol/L (98-107); CREATININE SERUM 0.4 mg/dL (0.7-1.3); GFR1 > 60 mL/min; GLUCOSE SERUM 127 mg/dL (74-106); MAGNESIUM 2.1 mg/dL (1.8-2.4); PHOSPHOROUS 3.1 mg/dL (2.5-4.9); POTASSIUM SERUM 3.9 mmol/L (3.5-5.1); SODIUM SERUM 141 mmol/L (136-145)
[2020-01-07 08:28] LABS: CARBON DIOXIDE 41.8 mmol/L (21-32)
[2020-01-07 08:37] LABS: RED CELL DISTRIBUTION WIDTH 17.2 % (11.5-14.5)
[2020-01-08] VITALS (18 sets, daily range): BP systolic 90–126; BP diastolic 57–84
[2020-01-08 05:21] LABS: BASOPHIL % 0.4 % (0-2); PLATELET COUNT 300 x10^3mcL (130-400)
[2020-01-08 05:22] LABS: RED CELL DISTRIBUTION WIDTH 16.3 % (11.5-14.5)
[2020-01-08 05:32] LABS: CALCIUM 8.2 mg/dL (8.5-10.1); CHLORIDE SERUM 98 mmol/L (98-107); CREATININE SERUM 0.3 mg/dL (0.7-1.3); GFR1 > 60 mL/min; GLUCOSE SERUM 110 mg/dL (74-106); MAGNESIUM 2.1 mg/dL (1.8-2.4); POTASSIUM SERUM 3.7 mmol/L (3.5-5.1); SODIUM SERUM 141 mmol/L (136-145)
[2020-01-08 05:39] LABS: CARBON DIOXIDE 44.8 mmol/L (21-32)
[2020-01-09] VITALS (17 sets, daily range): BP systolic 90–121; BP diastolic 53–76
[2020-01-09 06:59] LABS: BASOPHIL % 0.2 % (0-2); PLATELET COUNT 336 x10^3mcL (130-400)
[2020-01-09 07:16] LABS: RED CELL DISTRIBUTION WIDTH 17.1 % (11.5-14.5)
[2020-01-09 07:30] LABS: ALBUMIN 1.4 g/dL (3.4-5.0); CHLORIDE SERUM 98 mmol/L (98-107); CREATININE SERUM 0.4 mg/dL (0.7-1.3); GFR1 > 60 mL/min; GLUCOSE SERUM 149 mg/dL (74-106); PHOSPHOROUS 3.6 mg/dL (2.5-4.9); POTASSIUM SERUM 3.9 mmol/L (3.5-5.1); SODIUM SERUM 139 mmol/L (136-145)
[2020-01-09 07:32] LABS: CARBON DIOXIDE 40.9 mmol/L (21-32)
[2020-01-09 11:45] LABS: microscopic required? YES; urine erythrocyte TRACE (NEGATIVE)
[2020-01-10] VITALS (17 sets, daily range): BP systolic 95–119; BP diastolic 57–73
[2020-01-10 06:17] LABS: BASOPHIL % 0.1 % (0-2); PLATELET COUNT 355 x10^3mcL (130-400)
[2020-01-10 06:20] LABS: RED CELL DISTRIBUTION WIDTH 16.6 % (11.5-14.5)
[2020-01-10 07:02] LABS: CALCIUM 8.2 mg/dL (8.5-10.1); CHLORIDE SERUM 97 mmol/L (98-107); CREATININE SERUM 0.4 mg/dL (0.7-1.3); GFR1 > 60 mL/min; GLUCOSE SERUM 178 mg/dL (74-106); MAGNESIUM 2.2 mg/dL (1.8-2.4); PHOSPHOROUS 2.2 mg/dL (2.5-4.9); POTASSIUM SERUM 3.9 mmol/L (3.5-5.1); SODIUM SERUM 141 mmol/L (136-145)
[2020-01-10 07:43] LABS: CARBON DIOXIDE 44.1 mmol/L (21-32)
[2020-01-11] VITALS (17 sets, daily range): BP systolic 108–129; BP diastolic 61–68; Ht 167.6 cm; Wt 77.7 kg
[2020-01-11 08:26] LABS: BASOPHIL % 0.3 % (0-2); PLATELET COUNT 344 x10^3mcL (130-400)
[2020-01-11 08:29] LABS: RED CELL DISTRIBUTION WIDTH 17.1 % (11.5-14.5)
[2020-01-11 09:06] LABS: CHLORIDE SERUM 99 mmol/L (98-107); CREATININE SERUM 0.2 mg/dL (0.7-1.3); GFR1 > 60 mL/min; GLUCOSE SERUM 186 mg/dL (74-106); MAGNESIUM 1.9 mg/dL (1.8-2.4); PHOSPHOROUS 1.7 mg/dL (2.5-4.9); POTASSIUM SERUM 3.9 mmol/L (3.5-5.1); SODIUM SERUM 142 mmol/L (136-145)
[2020-01-11 09:21] LABS: CARBON DIOXIDE > 45.0 mmol/L (21-32)
[2020-01-12] VITALS (17 sets, daily range): BP systolic 100–126; BP diastolic 51–72
[2020-01-12 05:37] LABS: BASOPHIL % 0.1 % (0-2); PLATELET COUNT 402 x10^3mcL (130-400)
[2020-01-12 06:00] LABS: CHLORIDE SERUM 100 mmol/L (98-107); CREATININE SERUM 0.3 mg/dL (0.7-1.3); GFR1 > 60 mL/min; GLUCOSE SERUM 98 mg/dL (74-106); MAGNESIUM 2.1 mg/dL (1.8-2.4); PHOSPHOROUS 2.3 mg/dL (2.5-4.9); SODIUM SERUM 143 mmol/L (136-145)
[2020-01-12 06:08] LABS: CARBON DIOXIDE > 45.0 mmol/L (21-32)
[2020-01-13] VITALS (17 sets, daily range): BP systolic 93–124; BP diastolic 52–70
[2020-01-13 06:20] LABS: BASOPHIL % 1.2 % (0-2); PLATELET COUNT 387 x10^3mcL (130-400); RED CELL DISTRIBUTION WIDTH 17.9 % (11.5-14.5)
[2020-01-13 07:37] LABS: CALCIUM 8.2 mg/dL (8.5-10.1); CHLORIDE SERUM 98 mmol/L (98-107); CREATININE SERUM 0.4 mg/dL (0.7-1.3); GFR1 > 60 mL/min; GLUCOSE SERUM 108 mg/dL (74-106); POTASSIUM SERUM 4.1 mmol/L (3.5-5.1); SODIUM SERUM 141 mmol/L (136-145)
[2020-01-13 07:52] LABS: MAGNESIUM 2.2 mg/dL (1.8-2.4); PHOSPHOROUS 2.8 mg/dL (2.5-4.9)
[2020-01-13 07:55] LABS: CARBON DIOXIDE > 45.0 mmol/L (21-32)
[2020-01-14] VITALS (18 sets, daily range): BP systolic 95–117; BP diastolic 38–65
[2020-01-14 06:04] LABS: BASOPHIL % 0.3 % (0-2); PLATELET COUNT 338 x10^3mcL (130-400)
[2020-01-14 06:05] LABS: RED CELL DISTRIBUTION WIDTH 16.8 % (11.5-14.5)
[2020-01-14 06:35] LABS: CALCIUM 8.2 mg/dL (8.5-10.1); CHLORIDE SERUM 99 mmol/L (98-107); CREATININE SERUM 0.4 mg/dL (0.7-1.3); GFR1 > 60 mL/min; GLUCOSE SERUM 172 mg/dL (74-106); PHOSPHOROUS 3.5 mg/dL (2.5-4.9); POTASSIUM SERUM 4.9 mmol/L (3.5-5.1); SODIUM SERUM 142 mmol/L (136-145)
[2020-01-14 06:41] LABS: CARBON DIOXIDE > 45.0 mmol/L (21-32)
[2020-01-15] VITALS (18 sets, daily range): BP systolic 96–121; BP diastolic 58–74
[2020-01-15 06:18] LABS: BASOPHIL % 0.1 % (0-2); PLATELET COUNT 365 x10^3mcL (130-400)
[2020-01-15 06:19] LABS: RED CELL DISTRIBUTION WIDTH 17.3 % (11.5-14.5)
[2020-01-15 06:57] LABS: CALCIUM 7.8 mg/dL (8.5-10.1); CHLORIDE SERUM 97 mmol/L (98-107); CREATININE SERUM 0.3 mg/dL (0.7-1.3); GFR1 > 60 mL/min; GLUCOSE SERUM 181 mg/dL (74-106); MAGNESIUM 1.8 mg/dL (1.8-2.4); PHOSPHOROUS 1.6 mg/dL (2.5-4.9); SODIUM SERUM 138 mmol/L (136-145)
[2020-01-15 07:15] LABS: CARBON DIOXIDE > 45.0 mmol/L (21-32)
[2020-01-16] VITALS (16 sets, daily range): BP systolic 85–122; BP diastolic 54–76
[2020-01-16 05:44] LABS: BASOPHIL % 0.2 % (0-2); PLATELET COUNT 344 x10^3mcL (130-400)
[2020-01-16 05:45] LABS: RED CELL DISTRIBUTION WIDTH 17.1 % (11.5-14.5)
[2020-01-16 05:56] LABS: CALCIUM 7.6 mg/dL (8.5-10.1); CHLORIDE SERUM 96 mmol/L (98-107); CREATININE SERUM 0.3 mg/dL (0.7-1.3); GFR1 > 60 mL/min; GLUCOSE SERUM 180 mg/dL (74-106); PHOSPHOROUS 1.5 mg/dL (2.5-4.9); POTASSIUM SERUM 4.1 mmol/L (3.5-5.1); SODIUM SERUM 138 mmol/L (136-145)
[2020-01-16 06:11] LABS: CARBON DIOXIDE > 45.0 mmol/L (21-32)
[2020-01-16 09:06] LABS: UA SPECIFIC GRAVITY 1.015 (1.005-1.035); microscopic required? YES; urine erythrocyte NEGATIVE (NEGATIVE)
[2020-01-17] VITALS (17 sets, daily range): BP systolic 85–131; BP diastolic 57–75
[2020-01-17 06:49] LABS: BASOPHIL % 0.2 % (0-2); PLATELET COUNT 320 x10^3mcL (130-400)
[2020-01-17 07:00] LABS: CHLORIDE SERUM 94 mmol/L (98-107); CREATININE SERUM 0.2 mg/dL (0.7-1.3); GFR1 > 60 mL/min; GLUCOSE SERUM 199 mg/dL (74-106); MAGNESIUM 1.9 mg/dL (1.8-2.4); PHOSPHOROUS 2.6 mg/dL (2.5-4.9); POTASSIUM SERUM 3.9 mmol/L (3.5-5.1); SODIUM SERUM 136 mmol/L (136-145)
[2020-01-17 07:01] LABS: CARBON DIOXIDE 44.2 mmol/L (21-32)
[2020-01-17 07:15] LABS: RED CELL DISTRIBUTION WIDTH 17.8 % (11.5-14.5)
[2020-01-18] VITALS (19 sets, daily range): BP systolic 92–120; BP diastolic 46–69
[2020-01-18 06:40] LABS: BASOPHIL % 0.1 % (0-2); PLATELET COUNT 306 x10^3mcL (130-400)
[2020-01-18 06:56] LABS: RED CELL DISTRIBUTION WIDTH 17.7 % (11.5-14.5)
[2020-01-18 07:03] LABS: CHLORIDE SERUM 95 mmol/L (98-107); CREATININE SERUM 0.3 mg/dL (0.7-1.3); GFR1 > 60 mL/min; GLUCOSE SERUM 148 mg/dL (74-106); MAGNESIUM 2.1 mg/dL (1.8-2.4); PHOSPHOROUS 3.7 mg/dL (2.5-4.9); POTASSIUM SERUM 4.5 mmol/L (3.5-5.1); SODIUM SERUM 139 mmol/L (136-145)
[2020-01-18 07:35] LABS: CARBON DIOXIDE > 45.0 mmol/L (21-32)
[2020-01-19 01:32] VITALS: BP 82/38
[2020-01-19 03:03] VITALS: BP 100/47
[2020-01-19 03:32] VITALS: BP 100/47
== END 2020-01-19 13:00 | disposition expired | DRG 870 ==
LOC: ED 16:44 → DU 18:51 → IC 18:51 → DU 22:10 → IC 12-03 06:18
PROVIDERS: Emergency Medicine; Family Medicine; Internal Medicine; Internal Medicine Critical Care Medicine; Internal Medicine Infectious Disease; Student in an Organized Health Care Education/Training Program; ADMIT Internal Medicine; ATTEND Internal Medicine
PROC: XW13325 Transfusion of Convalescent Plasma (Nonautologous) into Peripheral Vein, Percutaneous Approach, New Technology Group 5 (ICD-10-PCS; 2019-12-03)
PROC: XW033E5 Introduction of Remdesivir Anti-infective into Peripheral Vein, Percutaneous Approach, New Technology Group 5 (ICD-10-PCS; 2019-12-06)
PROC: 5A1955Z Respiratory Ventilation, Greater than 96 Consecutive Hours (ICD-10-PCS; 2019-12-07)
PROC: XW033E5 Introduction of Remdesivir Anti-infective into Peripheral Vein, Percutaneous Approach, New Technology Group 5 (ICD-10-PCS; 2019-12-07)
PROC: 0BH17EZ Insertion of Endotracheal Airway into Trachea, Via Natural or Artificial Opening (ICD-10-PCS; 2019-12-07)
PROC: XW033E5 Introduction of Remdesivir Anti-infective into Peripheral Vein, Percutaneous Approach, New Technology Group 5 (ICD-10-PCS; 2019-12-08)
PROC: XW033E5 Introduction of Remdesivir Anti-infective into Peripheral Vein, Percutaneous Approach, New Technology Group 5 (ICD-10-PCS; 2019-12-09)
PROC: XW033E5 Introduction of Remdesivir Anti-infective into Peripheral Vein, Percutaneous Approach, New Technology Group 5 (ICD-10-PCS; 2019-12-10)
PROC: XW033E5 Introduction of Remdesivir Anti-infective into Peripheral Vein, Percutaneous Approach, New Technology Group 5 (ICD-10-PCS; 2019-12-11)
PROC: XW033E5 Introduction of Remdesivir Anti-infective into Peripheral Vein, Percutaneous Approach, New Technology Group 5 (ICD-10-PCS; 2019-12-12)
PROC: XW033E5 Introduction of Remdesivir Anti-infective into Peripheral Vein, Percutaneous Approach, New Technology Group 5 (ICD-10-PCS; 2019-12-13)
PROC: XW033E5 Introduction of Remdesivir Anti-infective into Peripheral Vein, Percutaneous Approach, New Technology Group 5 (ICD-10-PCS; 2019-12-14)
PROC: XW033E5 Introduction of Remdesivir Anti-infective into Peripheral Vein, Percutaneous Approach, New Technology Group 5 (ICD-10-PCS; 2019-12-15)
PROC: 02HV33Z Insertion of Infusion Device into Superior Vena Cava, Percutaneous Approach (ICD-10-PCS; 2019-12-15)
PROC: B548ZZA Ultrasonography of Superior Vena Cava, Guidance (ICD-10-PCS; 2019-12-15)
PROC: 05HY33Z Insertion of Infusion Device into Upper Vein, Percutaneous Approach (ICD-10-PCS; 2020-01-09)
PROC: 0W9B30Z Drainage of Left Pleural Cavity with Drainage Device, Percutaneous Approach (ICD-10-PCS; 2020-01-09)
PROC: 05HY33Z Insertion of Infusion Device into Upper Vein, Percutaneous Approach (ICD-10-PCS; 2020-01-16)
PROC: 5A1935Z Respiratory Ventilation, Less than 24 Consecutive Hours (ICD-10-PCS; principal; 2020-01-18)
DX: A41.9 Sepsis, unspecified organism (principal); J96.01 Acute respiratory failure with hypoxia; U07.1 COVID-19; J18.9 Pneumonia, unspecified organism; J80 Acute respiratory distress syndrome; J93.9 Pneumothorax, unspecified; R57.9 Shock, unspecified; E87.1 Hypo-osmolality and hyponatremia; J81.1 Chronic pulmonary edema; E87.3 Alkalosis; D69.6 Thrombocytopenia, unspecified; E87.8 Other disorders of electrolyte and fluid balance, not elsewhere classified; E78.00 Pure hypercholesterolemia, unspecified; Z79.899 Other long term (current) drug therapy; Z79.891 Long term (current) use of opiate analgesic; Z79.84 Long term (current) use of oral hypoglycemic drugs; Z79.4 Long term (current) use of insulin; Z79.2 Long term (current) use of antibiotics; E11.65 Type 2 diabetes mellitus with hyperglycemia; Z79.01 Long term (current) use of anticoagulants; N50.89 Other specified disorders of the male genital organs; D72.829 Elevated white blood cell count, unspecified
CPT/HCPCS: 31500; 36600; 82962; 83880; 84439; 85300; 85378; 87804; A4628; C1729; C9113; G0378; J0456; J0610; J0692; J1100; J1450; J1642; J1644; J1650; J1815; J1940; J1956; J2001; J2185; J2250; J2370; J2405; J2704; J2765; J2920; J2930; J3010; J3370; J3490; J3535; J3590; J7030; J7040; J7042; J7050; Q0092; U0003-CS